=== PATIENT | female | born 1940 | race Hispanic/Latino ===

== ENCOUNTER → 2024-06-07 | Day surgery (SDC) | payer MEDICARE ==
[2024-06-06 12:37] LABS: BASOPHILS # (AUTO) 0.1 (0.0-0.1); BASOPHILS % 0.5 % (0.0-1.0); EOSINOPHILS # (AUTO) 0.1 (0.0-0.4); EOSINOPHILS % 0.6 % (0.0-6.0); HEMATOCRIT 41.5 % (34.2-44.1); HEMOGLOBIN 14.4 g/dL (12.0-16.0); LYMPHOCYTES # (AUTO) 1.3 (1.0-3.2); LYMPHOCYTES % 14.1 % (18.0-39.1); MEAN CORPUSCULAR HEMOGLOBIN 31.8 pg (28-32); MEAN CORPUSCULAR HGB CONC 34.7 g/dL (31-35); MEAN CORPUSCULAR VOLUME 91.6 fL (81-99); MONOCYTES # (AUTO) 0.6 (0.2-0.8); MONOCYTES % 6.6 % (4.4-11.3); NEUTROPHILS # (AUTO) 7.4 (2.1-6.9); NEUTROPHILS % 77.8 % (38.7-80.0); PLATELET COUNT 210 x10e3/uL (140-360); RED BLOOD COUNT 4.53 x10e6/uL (3.6-5.1); RED CELL DISTRIBUTION WIDTH 12.6 % (11.7-14.4); WHITE BLOOD COUNT 9.52 x10e3/uL (4.8-10.8)
[~2024-06-07] MED LIST: ACETAMINOPHEN 1000 MG/100 ML 100 ML IV ONE; ACETAMINOPHEN 1000 MG/100 ML IV PRN; ALENDRONATE SOD70 MG PO; AMLODIPINE BESY10 MG PO; ASPIRIN 325 MG TAB PO SCH; ASPIRIN325 MG PO; ASPIRIN81 MG PO; ATORVASTATIN CA10 MG PO; CEFAZOLIN SODIUM 2 GM ONE; CELECOXIB 100 MG CAP PO SCH; CLONIDINE HCL0.2 MG PO; DICLOFENAC SOD100 GM TOP; DIPHENHYDRAMINE HCL INJ 50 MG/ML VIAL IV PRN; DOCUSATE SODIUM 100 MG CAP PO PRN; EPHEDRINE SULFATE INJ 50 MG/ML VIAL ONE; ETODOLAC400 MG PO; FENTANYL CITRATE/PF 100MCG/2 ML INJ ONE; HYDROCODONE/APAP 5MG-325MG TAB ONE; HYDROCODONE/APAP 7.5MG-325MG 1 EA TAB PO PRN; LIDOCAINE HCL 2% LOCAL INJ 5 ML SDV VIAL INJ ONE; LOSARTAN POTAS100 MG PO; MELOXICAM7.5 MG PO; METOCLOPRAMIDE HCL 10 MG/2ML VIAL ONE; METOPROLOL SUCC25 MG PO; MULTI-VITAMIN1 EACH PO; NIFEDICAL XL30 MG PO; OMEPRAZOLE40 MG PO; ONDANSETRON HCL INJ 2MG/ML 2ML 2 MG/ML VIAL IV PRN; ONDANSETRON HCL INJ 2MG/ML 2ML 2 MG/ML VIAL ONE; PRAVASTATIN SOD20 MG PO; PROPOFOL IV EMULSION 10 MG/ML 20 ML VIAL ONE; ROPIVACAINE/EPI/CLONIDINE/KET 50 ML SYRINGE INJ ONE; SEVOFLURANE INHAL SOLN 250 ML PEN BTL ONE; SODIUM CHLORIDE 0.9% 1000ML 1,000 ML IV SCH; TRANEXAMIC ACID 1,000 MG/10 ML ML ONE
[2024-06-07] MEDS: LACTATED RINGER'S 1,000 ML ONE (10:48)
[2024-06-07] MEDS: DEXAMETHASONE SOD PHOS 10 MG/1 ML VIAL ONE (10:49)
[2024-06-07] MEDS: GABAPENTIN 300 MG CAP ONE (10:49)
[2024-06-07] MEDS: CELECOXIB 200 MG CAP ONE (10:49)
[2024-06-07 13:46] VITALS: TEMP 97.4
[2024-06-07] MEDS: ONDANSETRON HCL INJ 2MG/ML 2ML 2 MG/ML VIAL ONE (16:05)
[2024-06-07 16:20] VITALS: BP 140/78; PULSE 78; RESP 16; O2SAT 97
[2024-06-07] MEDS: HYDROCODONE/APAP 5MG-325MG TAB PO PRN (16:40)
== END | disposition home health service (06) ==
LOC: OR 09:11
PROVIDERS: ATTEND Specialist
DX: M17.11 Unilateral primary osteoarthritis, right knee (principal); M25.761 Osteophyte, right knee; I10 Essential (primary) hypertension; E78.5 Hyperlipidemia, unspecified; K21.9 Gastro-esophageal reflux disease without esophagitis; Z88.6 Allergy status to analgesic agent; Z01.810 Encounter for preprocedural cardiovascular examination; Z01.812 Encounter for preprocedural laboratory examination; Z01.818 Encounter for other preprocedural examination; Z79.82 Long term (current) use of aspirin; Z79.899 Other long term (current) drug therapy
CPT/HCPCS: 27447; 36415; 71046; 73560; 85025; 86850; 86900; 93005; 97116; 97161; 97530; C1713 ×2; C1776 ×3; J0131; J0690; J1100; J2003; J2405; J2704; J2765; J3010; J7121